=== PATIENT | female | born 1990 | race African-American/Black ===

== ENCOUNTER 2017-02-06 00:41 | Emergency (ER) | payer OTHER ==
[2017-02-06] MEDS: ACETAMINOPHEN 500 MG TABLET PO ONE (00:55)
[2017-02-06 01:07] VITALS: BP 104/63
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
== END 2017-02-06 01:39 | disposition home or self-care (01) ==
LOC: ED 00:41
DX: S09.90XA Unspecified injury of head, initial encounter (principal); T76.11XA Adult physical abuse, suspected, initial encounter; X58.XXXA Exposure to other specified factors, initial encounter; Y93.9 Activity, unspecified; Y99.9 Unspecified external cause status
CPT/HCPCS: 99283

== ENCOUNTER 2017-04-04 17:10 | Emergency (ER) | payer OTHER ==
[2017-04-04] MEDS ORDERED: NORMAL SALINE 500 ML IV.SOLN IV PRN (17:32)
[2017-04-04] MEDS ORDERED: 0.9 % SODIUM CHLORIDE 1,000 ML IV ONE (17:41)
[2017-04-04 17:42] LABS: BASOPHILS % 0.9 (0.0-1.5); EOSINOPHILS % 5.3 % (0.0-6.8); MEAN CORPUSCULAR HEMOGLOBIN 31.1 pg (28.0-34.0); MEAN CORPUSCULAR VOLUME 94.6 fl (80.0-100.0); MONOCYTES % 3.8 % (0.0-11.0); NEUTROPHILS # 3.3 # k/uL (1.4-7.7)
[2017-04-04] MEDS ORDERED: NORMAL SALINE 500 ML IV.SOLN IV ONE (17:55)
[2017-04-04 17:56] LABS: eGFR (African) > 60; eGFR (Non-African) > 60
[2017-04-04] MEDS: IPRATROPIUM/ALBUTEROL SULFATE 3 ML AMPUL.NEB NEB ONE (18:00)
--- NOTE | 2017-04-04 18:43 | ED Physician Documentation ---
Upper Respiratory Symptoms - HISTORIAN Historian: patient - HPI Stated Complaint: cough with short of air Chief Complaint: Cough/ Upper Respiratory Additional Information: 1 week of prod cough, clear phlem, fatigue not feeling well. Onset: days ago Duration: constant Context: denies: recent foreign travel, multiple patients Severity: mild Associated Symptoms: chills, sinus drainage, productive cough. denies: fever, sweating, sinus pain Worsened by Deep Breath: No Further Comments: no - ROS CONST/EYES: denies: eye redness CVS/RESP: none LYMPH: denies: leg swelling GI/: none NEURO/PSYCH: denies: fainting, dizziness MS/SKIN: denies: joint pain - PAST HX Lung Disease: none PE Risk Factors: none Surgeries/Procedures: none Immunizations: UTD Allergies/Adverse Reactions: Allergies Allergy/AdvReac Type Severity Reaction Status Date / Time No Known Drug Allergies Allergy Verified 02/06/17 01:07 Home Medications: Ambulatory Orders Medication Instructions Recorded NK [NK] 04/04/17 - SOCIAL HX Smoking History: cigarettes Alcohol Use: none Drug Use: none - FAMILY HX Family History: none - VITAL SIGNS Vital Signs: Vital Signs Temp Pulse Resp BP Pulse Ox 99.0 F 85 20 107/39 99 04/04/17 17:10 04/04/17 17:10 04/04/17 17:10 04/04/17 17:10 04/04/17 17:10 - REVIEWED ASSESSMENTS Nursing Assessment Reviewed: Yes Vitals Reviewed: Yes ED Results Lab/Radiology - Lab Results Lab Results: Lab Results 04/04/17 04/04/17 17:35 17:35 WBC 6.80 K/ul K/ul (4.00-12.00) RBC 4.20 M/ul M/ul (3.90-5.20) Hgb 13.1 g/dL g/dL (12.0-16.0) Hct 39.8 % % (34.5-46.5) MCV 94.6 fl fl (80.0-100.0) MCH 31.1 pg pg (28.0-34.0) MCHC 32.9 g/dL g/dL (30.0-36.0) RDW 12.9 % % (11.3-14.3) Plt Count 159 K/mm3 K/mm3 (130-400) Neut % (Auto) 48.9 % % (39.0-79.0) Lymph % (Auto) 38.3 % % (16.0-50.0) Patrick % (Auto) 3.8 % % (0.0-11.0) Eos % (Auto) 5.3 % % (0.0-6.8) Baso % (Auto) 0.9 (0.0-1.5) Neut # (Auto) 3.3 # k/uL # k/uL (1.4-7.7) Lymph # (Auto) 2.6 # k/uL # k/uL (0.6-4.0) Patrick # (Auto) 0.3 # k/uL # k/uL (0.0-0.9) Eos # (Auto) 0.4 # k/uL # k/uL (0.0-0.6) Baso # (Auto) 0.1 # k/uL # k/uL (0.0-0.5) Reactive Lymphs % 2.7 % % (0.0-5.0) Reactive Lymphs # 0.2 # k/uL # k/uL (0.0-0.8) Sodium 138 mmol/L mmol/L (136-145) Potassium 3.9 mmol/L mmol/L (3.5-5.0) Chloride 107 mmol/L mmol/L (98-110) Carbon Dioxide 28 mmol/L mmol/L (20-32) BUN 6 mg/dL L mg/dL (10-26) Creatinine 0.7 mg/dL mg/dL (0.4-1.5) Estimated Creat Clear 159 Est GFR ( Amer) > 60 (60 - ) Est GFR (Non-Af Amer) > 60 (60 - ) Glucose 94 mg/dL mg/dL (70-99) Calcium 9.8 mg/dL mg/dL (8.5-10.5) Total Bilirubin 0.6 mg/dL mg/dL (0.2-1.2) AST 22 U/L U/L (0-41) ALT 13 U/L U/L (0-45) Alkaline Phosphatase 80 U/L U/L (46-116) Total Protein 7.5 g/dL g/dL (6.0-8.5) Albumin 4.4 g/dL g/dL (3.0-5.5) - Orders Orders: ED Orders Category Date Time Status Place IV Lock 1T Care 04/04/17 17:31 Active CHEST P.A.&LAT 2 VIEWS [RAD] Stat Exams 04/04/17 Taken CBC/PLATELET/DIFF Routine Lab 04/04/17 17:35 Completed CMP Routine Lab 04/04/17 17:35 Completed 0.9 % Sodium Chloride [Normal Saline] Med 04/04/17 17:55 Once 1,000 ml IV 1T ONE 0.9 % Sodium Chloride [Normal Saline] Med 04/04/17 17:32 Discontinued 1,000 ml IV 1T PRN 0.9 % Sodium Chloride [Normal Saline] 1,000 ml Med 04/04/17 17:41 Discontinued IV .STK-MED Ipratropium/Albuterol Sulfate [Duoneb] Med 04/04/17 17:29 Discontinued 3 ml NEB NOW ONE Oxygen Daily Oxygen 04/04/17 17:30 Ordered Upper Respiratory Symptoms - EXAM General Appearance: no acute distress, alert EENT: eyes nml inspection, nml ENT inspection, lids & conjunct. nml Neck: normal inspection, supple Respiratory: no resp. distress, wheezes (faint, improves after duoneb) Abdomen: non-tender CVS: reg rate & rhythm, heart sounds normal Skin: color nml, no rash, warm,dry Extremities: non-tender Neuro/Psych: oriented x3 Discharge Clincal Impression: Allergic rhinitis Qualifiers: Chronicity: acute Allergic rhinitis trigger: unspecified Allergic rhinitis seasonality: unspecified seasonality Qualified Code(s): J30.9 - Allergic rhinitis, unspecified Referrals: Primary Doctor,No [Primary Care Provider] - 2 Days Home Medications: Ambulatory Orders NK [NK] 04/04/17 Condition: Stable Disposition: 01 HOME, SELF-CARE Decision to Admit: NO Date of Decison to Admit: 04/04/17 Decision Time: 18:47
--- NOTE | 2017-04-04 18:52 | Diagnostic Imaging Report ---
SALAS MENDEZ [facility] [id number] [facility] [address] [place], [place]. [address] Report Submission Date: Apr 04, 2017 5:55:49 PM CDT Patient Study Name: EZEQUIEL REYES Date: Apr 04, 2017 5:39:32 PM CDT Modality Type: CR Gender: M Description: CHEST : 89 Institution: [facility] Physician: SALAS MENDEZ Examination: PA and lateral chest. History: Evaluate lung chavez. Findings: PA lateral chest demonstrate a normal cardiac and mediastinal silhouette. No focal infiltrate. No effusion. No blunting of the costophrenic margins. Osseous structures are appropriate for age. Impression: No acute Pulmonary process. Electronically signed on Apr 04, 2017 5:55:49 PM CDT by: Chance WOODARD
[2017-04-04] MEDS: methylPREDNISolone SOD SUCC 125 MG/2 ML VIAL IM ONE (19:01)
[2017-04-04 19:17] VITALS: BP 92/47
== END 2017-04-04 19:13 | disposition home or self-care (01) ==
LOC: ED 17:10
DX: J30.9 Allergic rhinitis, unspecified (principal)
CPT/HCPCS: 71020; 80053; 85025; J2930; J7030; 96360; 99283; S1016